=== PATIENT | female | born 1930 | race Caucasian/White ===

== ENCOUNTER 2019-04-25 20:52 | Inpatient (IN) | payer MEDICARE ==
[~2019-04-25] VITALS: Ht 160 cm; Wt 76.7 kg
[2019-04-25 20:52] VITALS: BP 109/72
[2019-04-25 21:23] LABS: ABSOLUTE MONOCYTES 0.8 thou/uL (0.0-1.2); BASOPHILS 0.5 %; EOSINOPHILS 0.4 %; HEMATOCRIT 27.5 % (37.0-47.0); HEMOGLOBIN 8.8 gm/dL (12.0-15.0); LYMPHOCYTES 12.4 %; MCH 25.8 pg (26.0-34.0); MCHC 32.2 g/dL (28.0-37.0); MCV 80.2 fL (80.0-100.0); MONOCYTES 10.3 %; MPV 7.5 fl. (7.2-11.1); NUCLEATED RBCS 0 /100WBC; PLATELET COUNT* 338 thou/uL (150-400); POLYS 76.4 %; RBC 3.43 mil/uL (4.20-5.00); RDW-CV 15.1 % (10.5-14.5); WBC 7.8 thou/uL (4.0-11.0)
--- NOTE | 2019-04-25 21:28 | NUR ---
PT'S FAMILY TO BEDSIDE, UPDATE AND PLAN OF CARE DISCUSSED WITH FAMILY. UNDERSTANDING VERBALIZED. FAMILY STATES PT WAS RECENTLY DISCHARGED FROM [facility] THIS PAST FRIDAY. PT TREATED FOR CHF, HYPOKALEMIA AND HYPOMAGNESEIA. ONSET OF SOA TODAY WITH COUGH.
[2019-04-25] MEDS ORDERED: 8 HOUR C500 MG PO (21:31)
[2019-04-25] MEDS ORDERED: FOSAMAX 70 MG T70 MG PO (21:31)
[2019-04-25] MEDS ORDERED: BIMATOPROST2.5 ML OPHTHALMIC (21:31)
[2019-04-25 21:32] LABS: CREATININE 1.6 mg/dL (0.6-1.3); POTASSIUM 4.1 mmol/L (3.5-5.1)
[2019-04-25] MEDS ORDERED: BIOTIN5 MG PO (21:32)
[2019-04-25] MEDS ORDERED: CITRACAL + BON1 EACH PO (21:33)
[2019-04-25 21:34] LABS: APTT 39.6 Seconds (25.0-31.3); INR 2.1; PROTIME 20.8 Seconds (9.20-11.50)
[2019-04-25] MEDS ORDERED: CARVEDILOL12.5 MG PO (21:40)
[2019-04-25] MEDS ORDERED: FAMOTIDINE 10 M10 MG PO (21:41)
[2019-04-25] MEDS ORDERED: B-12 DOTS500 MCG PO (21:41)
[2019-04-25] MEDS ORDERED: DILTIAZEM ER180 M2 PO (21:41)
[2019-04-25] MEDS ORDERED: TAMBOCOR 100 M100 M1 PO (21:42)
[2019-04-25] MEDS ORDERED: MYLANTA MAXIMU355 ML PO (21:42)
[2019-04-25] MEDS ORDERED: MELATONIN3 M1 PO (21:42)
[2019-04-25 21:43] LABS: ALBUMIN 3.1 g/dL (3.4-5.0); TOTAL BILIRUBIN 1.1 mg/dL (<0.1-1.0); TOTAL PROTEIN 5.9 g/dL (6.4-8.2)
[2019-04-25] MEDS ORDERED: MIRALAX119 GM PO (21:43)
[2019-04-25] MEDS ORDERED: OMEPRAZOLE 20 M20 M1 PO (21:43)
[2019-04-25] MEDS ORDERED: ZUPLENZ4 MG PO (21:43)
[2019-04-25] MEDS ORDERED: XARELTO20 MG PO (21:43)
[2019-04-25] MEDS ORDERED: SIMVASTATIN80 MG PO (21:44)
[2019-04-25] MEDS ORDERED: TIMOLOL MALEATE5 M2 OPHTHALMIC (21:44)
[2019-04-25] MEDS ORDERED: BIOFLEX TABLET1 EACH PO (21:44)
[2019-04-25 21:52] LABS: URINE BLOOD 1+ (Negative); URINE CLARITY SL CLOUDY; URINE COLOR YELLOW; URINE GLUCOSE-RANDOM NEGATIVE (Negative); URINE KETONES NEGATIVE (Negative); URINE PROTEIN 1+ (Negative); URINE SPECIFIC GRAVITY >= 1.030 (1.005-1.030)
[2019-04-25 21:56] LABS: ICTOTEST (BILI CONFIRMATORY) Positive (Negative); URINE BILIRUBIN 1+ (Negative); URINE LEUKOCYTES-REFLEX 2+ (Negative); URINE NITRITE-REFLEX POSITIVE (Negative)
[2019-04-25 22:11] LABS: INFLUENZA A ANTIGEN Negative (Negative); INFLUENZA B ANTIGEN Negative (Negative)
[2019-04-25 22:47] LABS: CASTS None Seen /LPF (None Seen); SQUAMOUS 0-3 Few /LPF (0-3)
[2019-04-25 22:48] LABS: BACTERIA-REFLEX >30 Many /HPF (None Seen); URINE RBC 3-10 Few /HPF (0-2)
[2019-04-25 22:49] LABS: CRYSTALS None Seen /LPF (None Seen)
[2019-04-25 22:50] VITALS: BP 112/62
[2019-04-25 23:06] VITALS: BP 108/50
[2019-04-25 23:17] VITALS: BP 93/63
[2019-04-25 23:30] VITALS: BP 104/66
[2019-04-25 23:45] VITALS: BP 108/66
[2019-04-26] VITALS (55 sets, daily range): BP systolic 70–135; BP diastolic 28–105
--- NOTE | 2019-04-26 05:33 | NUR ---
PATIENT AWOKE WITH INCREASING LABOR WITH RESPIRATIONS. ON AUSCULTATION, THE PATIENT'S LUNG BASES HAD NEWER CRACKLES. GIVEN THE PATIENT'S DIAGNOSIS OF NONSPECIFIC HEART FAILURE, FLUIDS WERE STOPPED. PATIENT'S URINE OUTPUT HAS ALSO BEEN OLIGURIC ONLY DRAINING 150 ML SINCE ADMISSION. PHYSICIAN WAS NOTIFIED OF THE NEW FINDINGS AND FLUIDS BEING STOPPED. MESSAGE WAS RECIEVED AND NO ORDERS WERE GIVEN AT THIS TIME. TM.
--- NOTE | 2019-04-26 10:04 | EKG ---
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
--- NOTE | 2019-04-26 10:29 | NUR ---
ICU rounds: Pt dc from [place] on 04/22/19, admitted there for heart failure. On fluids. Bipap in place. 2g sodium diet. No fevers. Albert. One loose stool. IV Vanc. Peripheral line. Pt is A&O. Resides at home in an apartment at her son's home. Normally active and independent. Pt has a cane and walker that she can use for mobility. Strong support sx. Pt states that she was set up with [facility] [place] from [place] and wants to resume at [place]. Cm contacted [facility] and confirmed that they are able to accept Pt back [place], referral will need to be faxed. No hx of SNF. Following [facility] p:[phone] f:[phone]
[2019-04-26 11:08] LABS: % SATURATION 3 % (20-39); IRON 11 ug/dL (50-175)
--- NOTE | 2019-04-26 18:52 | NUR ---
PT A&O x4. EKG SHOWS AFIB, RATE CONTROLLED. PT IN BIPAP FOR SOB FOR ABOUT AN HOUR THIS AM. ON NC 2L REST OF THE DAY, TOLERATING WELL. TOLERATING DIET. LOOSE STOOL x3 TODAY, SMALL IN AMOUNT. GETS TO BSC, STB ASSIST. FLUIDS DC'd THIS EVENING. PROGRESSING TOWARDS GOALS. FAMILY UPDATED.
[2019-04-27] VITALS (20 sets, daily range): BP systolic 90–122; BP diastolic 39–100
--- NOTE | 2019-04-27 02:30 | NUR ---
RECEIVED REPORT AND ASSUMED CARE AT 1900. VSS. ICU MONITORING IN PLACE. PT DENIES COMPLAINTS OF PAIN. ASSESSMENT COMPLETED CHARTED. PT UP WITH ASSIST TO BSC. 3L NC. BED LOCKED IN LOWEST POSITION, CALL LIGHT WITHIN REACH, BED ALARM ON.
[2019-04-27 04:56] LABS: HEMATOCRIT 27.4 % (37.0-47.0); HEMOGLOBIN 9.1 gm/dL (12.0-15.0); MCHC 33.1 g/dL (28.0-37.0); MCV 78.6 fL (80.0-100.0); MPV 7.2 fl. (7.2-11.1); RBC 3.48 mil/uL (4.20-5.00); RDW-CV 15.1 % (10.5-14.5)
[2019-04-27 05:25] LABS: CALCIUM 7.4 mg/dL (8.5-10.1); CREATININE 1.2 mg/dL (0.6-1.3); POTASSIUM 3.3 mmol/L (3.5-5.1)
--- NOTE | 2019-04-27 09:12 | NUR ---
7117 ASSUMED CARE OF PATIENT. PLEASE SEE DOCUMENTED ASSESSMENT. PT IS CONTROLLED ATRIAL FIB ON MONITOR. DISCUSSED PLAN OF CARE WITH PATIENT. SHE UNDERSTANDDS. WILL START POTASSIUM REPLACEMENT.
--- NOTE | 2019-04-27 09:13 | NUR ---
8356 DR PAPPAS HERE TO SEE PT . PATIENT IS NOW TELE STATUS.
--- NOTE | 2019-04-27 14:55 | 2DMMODE ---
[place] [address] 2 D/M-MODE ECHOCARDIOGRAM Name: JORGE ANNEYCE Room: [address] IN [facility]#: [id number] Admission: 04/25/19 Attend Phys: Porfirio Lucio, Discharge: Date of : 34 Date of Service: 04/27/19 1454 Report #: [id number] THIS REPORT FOR: //name// APPROVED REPORT Study performed: 04/27/2019 09:48:26 EXAM: Comprehensive 2D, Doppler, and color-flow Echocardiogram Patient Location: In-Patient Room #: [facility] Status: routine BSA: 1.80 HR: 71 bpm BP: 122/100 mmHg Rhythm: NSR Other Information Study Quality: Good Indications Sepsis Dyspnea 2D Dimensions IVSd: 10.88 (7-11mm) LVOT Diam: 21.30 (18-24mm) LVDd: 39.06 mm PWd: 6.42 (7-11mm) Ascending Ao: 32.00 (22-36mm) LVDs: 26.16 (25-40mm) Aortic Root: 28.35 mm Volumes Left Atrial Volume (Systole) LA ESV Index: 46.00 mL/m2 Aortic Valve AoV Peak Oskar.: 1.17 m/s AO Peak Gr.: 5.51 mmHg LVOT Max P.79 mmHg AO Mean Gr.: 3.10 mmHg LVOT Mean P.80 mmHg LVOT Max V: 0.67 m/s AO V2 VTI: 20.34 cm LVOT Mean V: 0.41 m/s ULYSSES (VTI): 2.23 cm2 LVOT V1 VTI: 12.76 cm Mitral Valve MV Decel. Time: 206.05 ms MV PHT: 59.[place] [address] 2 D/M-MODE ECHOCARDIOGRAM Name: LALO ANNE Room: [address] IN ..#: [id number] Admission: 04/25/19 Attend Phys: Porfirio Lucio, Discharge: Date of : 34 Date of Service: 04/27/19 1454 Report #: [id number] MVA (PHT): 3.68 cm2 TDI Medial E' Oskar.: 0.12 m/s Lateral E' Oskar.: 0.13 m/s Pulmonary Valve PV Peak Oskar.: 0.91 m/s PV Peak Gr.: 3.32 mmHg Tricuspid Valve RAP Estimate: 5.00 mmHg TR Peak Gr.: 28.75 mmHg RVSP: 33.00 mmHg PA Pressure: 33.00 mmHg Left Ventricle The left ventricle is normal size. There is left ventricular systolic dyssynchrony consistent with underlying bundle branch block. Global LV systolic function is preserved. There is normal left ventricular wall thickness. Left ventricular systolic function is normal. LVEF is 50-55%. This study is not technically sufficient to allow evaluation of the LV diastolic function due to atrial fibrillation. Right Ventricle Right ventricle is mildly dilated. The right ventricular systolic function is normal. Atria Left atrium is moderately dilated. Right atrium is mildly dilated. Aortic Valve Mild aortic valve sclerosis. No aortic regurgitation is present. There is no aortic valvular stenosis. Mitral Valve The mitral valve is normal in structure. Mild mitral regurgitation. No evidence of mitral valve stenosis. Tricuspid Valve The tricuspid valve is normal in structure. Mild tricuspid regurgitation. The RVSP is 35-40 mmHg. Pulmonic Valve The pulmonary valve is normal in structure. Trace [place]mon[place] [address] 2 D/M-MODE ECHOCARDIOGRAM Name: LALO ANNE Room: [address]#: [id number] Admission: 04/25/19 Attend Phys: Porfirio Lucio, Discharge: Date of : 34 Date of Service: 04/27/19 1454 Report #: [id number] Great Vessels The aortic root is normal in size. IVC is normal in size and collapses >50% with inspiration. Pericardium There is no pericardial effusion. <Conclusion> The left ventricle is normal size. There is normal left ventricular wall thickness. Left ventricular systolic function is normal. LVEF is 50-55%. Right ventricle is mildly dilated. Left atrium is moderately dilated. Right atrium is mildly dilated. Mild aortic valve sclerosis. Mild mitral regurgitation. Mild tricuspid regurgitation. The RVSP is 35-40 mmHg. IVC is normal in size and collapses >50% with inspiration. <ELECTRONICALLY SIGNED> By: Phuc Brizuela MD, FACC 04/27/19 1454 1454 1454 Phuc Brizuela MD, FACC /INF
--- NOTE | 2019-04-27 16:11 | NUR ---
PATIENT PROGRESSING TOWARDS GOALS. ON ROOM AIR. TELEMETRY STATUS. DIURESED POST LASIX. UP AT BEDSIDE. APPETITE FAIR. REMAINS IN CONTROLLED ATRIAL FIB. BIPAP IS NOW PRN. ECHO DONE. PLAN IS TO TRANSFER OUT OF ICU. FAMILY HAS VISITED
--- NOTE | 2019-04-27 17:59 | NUR ---
REPORT CALLED TO PHILIP LYNN ON TELEMETRY. PT WILL MOVE TO 202. DAUGHTER IS HERE AND PT AND DAUGHTER INFORMED OF PLAN TO MOVE.
--- NOTE | 2019-04-27 18:07 | CON ---
[address] [address] CONSULTATION Name: LALO ANNE Room: [address] ADM IN M.R.#: [id number] Admission: 04/25/19 Attend Phys: Porfirio Lucio MD Discharge: Date of : 34 Report #: [id number] THIS REPORT FOR: //name// CC: Porfirio Powell MD DATE OF SERVICE: 04/26/2019 CARDIOLOGY CONSULTATION HISTORY OF PRESENT ILLNESS: The patient is an 88-year-old white female who I was asked to see in the hospital today after she complained of being weak. Unfortunately, there are no old records available here at [place]. The history is obtained from the patient and her daughter who is present. She apparently presented last September with atrial fibrillation. She was cardioverted by Dr. Grajeda at [place]. She is placed on Xarelto and flecainide. She took flecainide for a period of time and then discontinued the flecainide. She recently was admitted to [facility] 2 weeks ago with shortness of breath. She was in the hospital for 5 days. She apparently had an echocardiogram that showed her heart was "strong." She apparently had a stress test that showed no evidence of blockage. She was just discharged 4 days ago. She was found to be back in atrial fibrillation. She was started back on flecainide and the plan was to cardiovert her today at [facility]. However, over the weekend, she noticed decreased urinary output. Today, her blood pressure is low and she called an ambulance and brought here to [place]. She was admitted for further evaluation and treatment. She denies any chest pain. She does get short of breath. She denied lightheadedness or syncope. She has had no bleeding. PAST MEDICAL HISTORY: Otherwise, she has a previous hip surgery, both knee replacements, cholecystectomy. She has had a mastectomy for cancer in the past, hypertension and diabetes. MEDICATIONS: At this time includes Flomax, carvedilol, diltiazem, flecainide, Xarelto, simvastatin. ALLERGIES: SHE HAS INTOLERANCE TO CODEINE AND SULFA DRUGS. FAMILY HISTORY: Mother had a stroke. SOCIAL HISTORY: She is . She and her live in [place]. She uses a walker. No history of smoking or alcohol abuse. REVIEW OF SYSTEMS: No history of stroke or asthma. She does have occasional indigestion. No kidney disease. No psychiatric illness[place] [address] CONSULTATION Name: LALO ANNE Room: [address] IN [facility]#: [id number] Admission: 04/25/19 Attend Phys: Porfirio Lucio MD Discharge: Date of : 34 Report #: [id number] condition. PHYSICAL EXAMINATION: GENERAL: Revealed an elderly female lying in bed. She appeared in no acute distress. VITAL SIGNS: Her blood pressure initially was in the 90s. Currently, her blood pressure is 120/70, pulse is 100. HEENT: She was anicteric. Conjunctivae are pink. Mucous members moist. NECK: Veins do not appear distended. CHEST: Clear to auscultation. CARDIOVASCULAR: Regular, tachycardia. ABDOMEN: Soft. EXTREMITIES: Had no edema. SKIN: Cool and dry. NEUROLOGIC: Nonfocal. RADIOLOGICAL DATA: Her ECG showed atrial fibrillation, rapid ventricular response rate. There was a left bundle-branch block. Her workup in the Emergency Room today, she had portable chest x-ray last night in the Emergency Room that showed cardiomegaly, mild vascular congestion. LABORATORY DATA: Sodium 125, creatinine 1.6. Her liver function studies were normal. Albumin 3.1. BNP 6833. White blood cell count 7.8, hemoglobin 8.8, hematocrit 27.5. IMPRESSION AND RECOMMENDATIONS: 1. Recurrent atrial fibrillation. At this time, I would aim for rate control rather than repeat cardioversion. I would consider discontinuing the flecainide and aim for rate control with a beta-ayad and calcium ayad. I am concerned about continuing anticoagulation since the patient is anemic. 2. Anemia. No history of bleeding. 3. Low blood pressure. I will consider decreasing some of the medications. 4. History of breast cancer. 5. Glucose intolerance. 6. Anemia. No history of bleeding. 7. Hyponatremia. <ELECTRONICALLY SIGNED> By: Yohan Topete MD, [facility] 04/27/19 1807 1207 2131Dnga Topete MD, FAC /nt
--- NOTE | 2019-04-27 18:27 | NUR ---
1815 TRANSFERRED PER WHEELCHAIR TO ROOM 202 WITH ALL RECORDS AND BELONGINGS. CARE ASSUMED BY PHILIP LYNN
--- NOTE | 2019-04-27 18:43 | NUR ---
PT ARRIVED TO UNIT AT APPROX 1835 VIA CART, REPORT TAKEN FROM HSANE DEWITT. THIS NURSE HAS READ PREVIOUS NURSES ASSESSMENT AND DOES AGREE WITH IT. PT ORIENTED TO CALL LIGHT AND ROOM. M
[2019-04-28] VITALS: BP 91/52
[2019-04-28 03:57] VITALS: BP 108/62
--- NOTE | 2019-04-28 05:35 | NUR ---
PT REMAINS ON 1500 FLUID RESTRICTION, CARTER IN PLACE FOR I&O'S, TRANSFERS TO COMMODE WITH WALKER AND STB. NO C/O PAIN NOTED BY PT, DID HAVE C/O HEARTBURN, ADMIN PEPCID EARLY FOR POC. NO OTHER CONCERNS NOTED AT THIS TIME, CURRENTLY AWAKE IN BED WITH CALL LIGHT WITHIN REACH AND BED ALARM ON.
[2019-04-28 08:06] VITALS: BP 116/61
[2019-04-28 11:33] LABS: CREATININE 1.1 mg/dL (0.6-1.3); POTASSIUM 4.3 mmol/L (3.5-5.1)
[2019-04-28 12:00] VITALS: BP 117/63
[2019-04-28 16:00] VITALS: BP 119/58
--- NOTE | 2019-04-28 18:22 | NUR ---
PT HEARTBURN HAS RESOLVED AND HAS NO FURTHER COMPLAINTS. PT PROGRESSING TOWARDS GOALS APPROPRIATELY. PT IS AFIB ON THE MONITOR. VSS ON RA. PT HAD NO COMPLAINTS ON HOURLY ROUNDING. FALL PRECAUTIONS IN PLACE
[2019-04-28] MEDS ORDERED: IRON325 PO (18:30)
[2019-04-28] MEDS ORDERED: LEVAQUIN 750 M750 MG PO (18:30)
[2019-04-28 20:00] VITALS: BP 131/65
[2019-04-29] VITALS: BP 112/55
[2019-04-29 04:00] VITALS: BP 122/68
--- NOTE | 2019-04-29 05:18 | NUR ---
PT STATED SHE CONTIUNES TO FEEL BETTER, NO C/O N/V THIS SHIFT. PT DID HAVE AN EPISODE OF VTACH WHEN SHE HAVING A BM THIS AM. PT WAS ASYMPTOMATIC AND HR RETURNED TO NORMAL PT RETURNED TO BED. STRIP POSTED IN CHART FOR REVIEW. PT HAD NO C/O PAIN OR DISCOMFORT. CURRENTLY IN BED WITH CALL LIGHT WITHIN REACH AND BED ALARM ON.
[2019-04-29 08:13] VITALS: BP 125/72
[2019-04-29 09:38] VITALS: BP 125/72
--- NOTE | 2019-04-29 10:00 | NUR ---
Pt discharging to home today, faxed HH orders to [facility].
--- NOTE | 2019-04-29 11:37 | NUR ---
PT HAS BEEN COMFORTABLE,NO C/O NAUSEA,PAIN ON ROUNDING. PT GOALS HAVE BEEN MET AND PT ANTICIPATES D/C THIS AFTERNOON. FALL PRECAUTIONS IN PLACE
--- NOTE | 2019-04-29 11:58 | NUR ---
HEART FAILURE EDUCATION: ENTERED Pt. ROOM TO DISCUSS HEART FAILURE MEDICATIONS. WENT OVER ALL OF HER EXISTING MEDICATIONS FOR HF AT DISCHARGE WHICH ARE DILTIAZEM AND CARVEDILOL. DISCUSSED HOW THE MEDICATIONS WORK IN THE BODY, BENEFITS, WHY IT WAS PRESCRIBED AND POSSIBLE SIDE EFFECTS. AT THE END OF TALK Pt. HAD NO QUESTIONS. ASKED TO TALK TO COURSEWARE DEVELOPER OR PHARMACIST IF SHE HAD ANY QUESTIONS IN THE FUTURE.
== END 2019-04-29 13:30 | disposition home health service (06) | DRG 871 ==
LOC: M.ERS 20:52 → M.2W 22:07 → M.ICU 22:07 → M.TBA-ER 22:07 → M.ICU 22:31 → M.2W 04-27 18:22
PROVIDERS: Emergency Medicine Emergency Medical Services; Family Medicine; ADMIT Internal Medicine
PROC: 5A09357 Assistance with Respiratory Ventilation, Less than 24 Consecutive Hours, Continuous Positive Airway Pressure (ICD-10-PCS; principal; 2019-04-26)
PROC: 5A09357 Assistance with Respiratory Ventilation, Less than 24 Consecutive Hours, Continuous Positive Airway Pressure (ICD-10-PCS; 2019-04-27)
DX: A41.9 Sepsis, unspecified organism (principal); J96.01 Acute respiratory failure with hypoxia; I50.33 Acute on chronic diastolic (congestive) heart failure; N39.0 Urinary tract infection, site not specified; E87.1 Hypo-osmolality and hyponatremia; I48.20 Chronic atrial fibrillation, unspecified; D68.59 Other primary thrombophilia; I13.0 Hypertensive heart and chronic kidney disease with heart failure and stage 1 through stage 4 chronic kidney disease, or unspecified chronic kidney disease; E44.1 Mild protein-calorie malnutrition; E78.5 Hyperlipidemia, unspecified; K21.9 Gastro-esophageal reflux disease without esophagitis; M10.9 Gout, unspecified; M81.0 Age-related osteoporosis without current pathological fracture; M19.90 Unspecified osteoarthritis, unspecified site; Z96.653 Presence of artificial knee joint, bilateral; N18.3 Chronic kidney disease, stage 3 (moderate); D50.9 Iron deficiency anemia, unspecified; N18.9 Chronic kidney disease, unspecified; E11.22 Type 2 diabetes mellitus with diabetic chronic kidney disease; B96.20 Unspecified Escherichia coli [E. coli] as the cause of diseases classified elsewhere; Z68.29 Body mass index [BMI] 29.0-29.9, adult; I95.9 Hypotension, unspecified; Z88.6 Allergy status to analgesic agent; Z88.8 Allergy status to other drugs, medicaments and biological substances; Z90.49 Acquired absence of other specified parts of digestive tract; Z82.3 Family history of stroke; Z82.49 Family history of ischemic heart disease and other diseases of the circulatory system; Z79.899 Other long term (current) drug therapy